=== PATIENT | female | born 1990 | race Caucasian/White ===

== ENCOUNTER 2017-02-18 10:49 | Emergency (ER) | payer SELFPAY ==
--- NOTE | 2017-02-18 12:07 | Emergency Department Report ---
Chief Complaint: Vaginal Bleeding Stated Complaint: 7 WKS PREG/BLEEDING/CRAMPING Time Seen by Provider: 02/18/17 12:04 - HPI History of Present Illness: PT states she is 6-7 weeks and she has had vaginal bleeding since . pt reports intermittent lower abd pains. - ROS Review of Systems: + vaginal bleeding + lower abd pain - Exam Physical Exam: pt looks well, non toxic mild tenderness to LLQ MSE screening note: Focused history and physical exam performed. Due to findings the following was ordered: labs, us ED Disposition for MSE Condition: Stable
[2017-02-18 12:51] LABS: Basophils % (Auto) 0.3 % (0.0-1.8); Eosinophils % (Auto) 1.7 % (0.0-4.3); Hemoglobin 13.4 gm/dl (10.1-14.3); Mean Corpuscular HGB Conc 34 % (30-34); Mean Corpuscular Hemoglobin 30 pg (28-32); Mean Corpuscular Volume 89 fl (79-97); Platelet Count 254 K/mm3 (140-440); Red Blood Count 4.47 M/mm3 (3.65-5.03); White Blood Count 7.4 K/mm3 (4.5-11.0)
[2017-02-18 13:03] LABS: Alanine Aminotransferase 9 units/L (7-56); Albumin/Globulin Ratio 1.3 %; Alkaline Phosphatase 47 units/L (35-129); Anion Gap 18 mmol/L; Blood Urea Nitrogen 9 mg/dL (7-17); Calcium 9.1 mg/dL (8.4-10.2); Carbon Dioxide 24 mmol/L (22-30); Chloride 98.1 mmol/L (98-107); Glucose 85 mg/dL (65-100); Potassium 3.8 mmol/L (3.6-5.0); Sodium 136 mmol/L (137-145); Total Protein 7.2 g/dL (6.3-8.2)
[2017-02-18 14:02] LABS: Bilirubin,Urine NEG (Negative); Blood,Urine LG (Negative); Ketones,Urine NEG (Negative); Leukocyte Esterase,Urine NEG (Negative); Mucus,Urine FEW /HPF; Nitrite,Urine NEG (Negative); Urobilinogen,Urine < 2.0 mg/dL (<2.0)
--- NOTE | 2017-02-18 14:59 | Ultrasound Report ---
Pelvic and transvaginal sonography: History: 6 weeks with bleeding. Findings: Uterus measures 8.3 x 6.3 x 6.4 cm. Single intrauterine gestation is noted. CRL of the fetus is 9.3 mm corresponding to 7 weeks of gestation. heart rate 135 per minute. Moderate subchorionic bleed measuring 0.8 x 0.7 cm in diameter. Right ovary 2.4 x 1.9 x 2.9 cm. Complex cyst in the right ovary measures 1.7 cm. Left ovary 1.9 x 1.2 x 1.9 cm. No mass. Impression: Single viable intrauterine gestation. Small subchorionic bleed.
[2017-02-18 15:21] VITALS: BP 132/86
--- NOTE | 2017-02-18 15:47 | Emergency Department Report ---
HPI - General Chief Complaint: Vaginal Bleeding Time Seen by Provider: 02/18/17 12:04 - HPI HPI: This is a 26-year-old female states she is approximately 7 weeks presents to ED complaining of vaginal bleeding for the past week. Patient describes as dark red with light consistency. Patient states mild low pelvic cramping related. States she has an OB appointment next week and has not been to the OB this . She denies fevers/chills/vomiting/ ED Past Medical Hx - Past Medical History Previous Medical History?: Yes Hx Headaches / Migraines: Yes Additional medical history: Vaginal delivery X 3 - Surgical History Past Surgical History?: No - Social History Smoking Status: Never Smoker Substance Use Type: None - Medications Home Medications: Home Medications Medication Instructions Recorded Confirmed Last Taken Type Nitrofurantoin Gibson/M-Cryst 100 mg PO Q12HR #14 capsule 11/30/13 Unknown Rx [Macrobid] oxyCODONE /ACETAMINOPHEN [Percocet 1 tab PO Q6HR PRN #10 tablet 11/30/13 Unknown Rx 5/325 mg] Amoxicillin [Trimox CAP] 500 mg PO Q8H #30 capsule 09/05/15 Unknown Rx Acetaminophen [Acetaminophen 8 650 mg PO Q8H #30 tablet.er 02/18/17 Unknown Rx Hour] Doxylamine/Pyridoxine HCl 2 each PO QHS #30 tablet. 02/18/17 Unknown Rx [Bruce Kruger 10-10 mg Tablet] ED Review of Systems ROS: Stated complaint: 7 WKS PREG/BLEEDING/CRAMPING Other details as noted in HPI Constitutional: denies: chills, fever Eyes: denies: eye pain, eye discharge, vision change ENT: denies: ear pain, throat pain Respiratory: denies: cough, shortness of breath, wheezing Cardiovascular: denies: chest pain, palpitations Endocrine: no symptoms reported Gastrointestinal: denies: abdominal pain, nausea, diarrhea Genitourinary: frequency. denies: urgency, dysuria, hematuria, discharge Musculoskeletal: denies: back pain, joint swelling, arthralgia Skin: denies: rash, lesions Neurological: denies: headache, weakness, paresthesias Psychiatric: denies: anxiety, depression Hematological/Lymphatic: denies: easy bleeding, easy bruising Physical Exam - Physical Exam Vital Signs: Vital Signs 02/18/17 02/18/17 12:04 15:20 Temperature 98 F Pulse Rate 71 84 Respiratory 16 20 Rate Blood Pressure 114/71 Blood Pressure 132/86 [Left] O2 Sat by Pulse 95 99 Oximetry Physical Exam: EGENERAL: Alert and oriented x3, no apparent distress, Normal Gait, atraumatic. HEAD: Head is normocephalic and a-traumatic. EYES: Extra ocular muscles are intact. Pupils are equal, round, and reactive to light and accommodation. LUNGS: Symetrical with respiration, No wheezing, no rales or crackles, CTAB. HEART: S1, S2 present, regular rate and rhythm without murmur, no rubs, no gallops. Non tender to palpation ABDOMEN: No organomegaly was noted,Positive bowel sounds, soft, and non- distended. . Nontender to palpation on all Quadrants, NO CVA tenderness. GENITOURINARY: External genitalia without erythema, exudate or discharge. Vaginal vault is with mild dark bloody discharge. Cervix is of normal color without lesion. Cervical os is closed. No bleeding no active bleeding from os Uterus is noted to be of normal size and nontender. No cervical motion tenderness. No masses are palpated. The adnexa are without masses or tenderness. EXTREMITIES/MUSCULOSKELETAL: No cyanosis, clubbing, rash, lesions or edema. Full ROM bilaterally. UE/LE Pulses 2+ bilaterally. SKIN: Warm and dry, No lesions, No ulceration or induration present. ED Course Vital Signs 02/18/17 02/18/17 12:04 15:20 Temperature 98 F Pulse Rate 71 84 Respiratory 16 20 Rate Blood Pressure 114/71 Blood Pressure 132/86 [Left] O2 Sat by Pulse 95 99 Oximetry ED Medical Decision Making - Lab Data Result diagrams: 02/18/17 12:24 02/18/17 12:24 Laboratory Results - last 24 hr 02/18/17 02/18/17 02/18/17 12:24 12:24 12:24 WBC 7.4 RBC 4.47 Hgb 13.4 Hct 40.0 MCV 89 MCH 30 MCHC 34 RDW 13.0 L Plt Count 254 Lymph % (Auto) 33.4 Gibson % (Auto) 6.1 Eos % (Auto) 1.7 Baso % (Auto) 0.3 Lymph # 2.5 Gibson # 0.5 Eos # 0.1 Baso # 0.0 Seg Neutrophils % 58.5 Seg Neutrophils # 4.3 Sodium 136 L Potassium 3.8 Chloride 98.1 Carbon Dioxide 24 Anion Gap 18 BUN 9 Creatinine 0.4 L Estimated GFR > 60 BUN/Creatinine Ratio 22.50 Glucose 85 Calcium 9.1 Total Bilirubin 0.20 AST 14 ALT 9 Alkaline Phosphatase 47 Total Protein 7.2 Albumin 4.0 Albumin/Globulin Ratio 1.3 HCG, Quant 66357 H Urine Color Urine Turbidity Urine pH Ur Specific [place] Urine Protein Urine Glucose (UA) Urine Ketones Urine Blood Urine Nitrite Urine Bilirubin Urine Urobilinogen Ur Leukocyte Esterase Urine WBC (Auto) Urine RBC (Auto) U Epithel Cells (Auto) Amorphous Crystals Urine Mucus Blood Type 02/18/17 02/18/17 12:24 13:37 WBC RBC Hgb Hct MCV MCH MCHC RDW Plt Count Lymph % (Auto) Gibson % (Auto) Eos % (Auto) Baso % (Auto) Lymph # Gibson # Eos # Baso # Seg Neutrophils % Seg Neutrophils # Sodium Potassium Chloride Carbon Dioxide Anion Gap BUN Creatinine Estimated GFR BUN/Creatinine Ratio Glucose Calcium Total Bilirubin AST ALT Alkaline Phosphatase Total Protein Albumin Albumin/Globulin Ratio HCG, Quant Urine Color Yellow Urine Turbidity Turbid Urine pH 7.0 Ur Specific [place] 1.019 Urine Protein 30 mg/dl Urine Glucose (UA) Neg Urine Ketones Neg Urine Blood Lg Urine Nitrite Neg Urine Bilirubin Neg Urine Urobilinogen < 2.0 Ur Leukocyte Esterase Neg Urine WBC (Auto) 2.0 Urine RBC (Auto) 4.0 U Epithel Cells (Auto) 10.0 Amorphous Crystals 1+ Urine Mucus Few Blood Type A POSITIVE - Radiology Data Radiology results: report reviewed, image reviewed Pelvic and transvaginal sonography: History: 6 weeks with bleeding. Findings: Uterus measures 8.3 x 6.3 x 6.4 cm. Single intrauterine gestation is noted. CRL of the fetus is 9.3 mm corresponding to 7 weeks of gestation. heart rate 135 per minute. Moderate subchorionic bleed measuring 0.8 x 0.7 cm in diameter. Right ovary 2.4 x 1.9 x 2.9 cm. Complex cyst in the right ovary measures 1.7 cm. Left ovary 1.9 x 1.2 x 1.9 cm. No mass. Impression: Single viable intrauterine gestation. Small subchorionic bleed. Transcribed By: PTP Dictated By: RUFUS CARNEY MD Electronically Authenticated By: RUFUS CARNEY MD Signed Date/Time: 02/18/17 9436 - Medical Decision Making 26-year-old female presents to ED for threatened ED course: CBC, BMP, test, quantitative, urinalysis, OB ultrasound ordered. CBC within normal limits BMP within normal limits. preg test is positive, quant greater than 76,000 Discussed all this with the patient. Discussed the patient to follow up with OB doctor patient states she has been appointment next week. Instructed the patient to Increase her water intake to 8-10 glasses per day. Discussed with the patient to have No sexual intercourse for the about a month or until follow-up which her OB. If your symptoms or bleeding get worse return to ED. Vital signs normal patient is in no acute distress Critical care attestation.: If time is entered above; I have spent that time in minutes in the direct care of this critically ill patient, excluding procedure time. ED Disposition Clinical Impression: Threatened in first trimester Disposition: DC-01 TO HOME OR SELFCARE Is pt being admited?: No Does the pt Need Aspirin: No Condition: Stable Instructions: Threatened Miscarriage (ED), Abdominal Pain in (ED) Additional Instructions: Increase her water intake to 8-10 glasses per day. No sexual intercourse for the about a month or until follow-up which her OB. keep OB appointment for next week If your symptoms or bleeding get worse return to ED. Prescriptions: Doxylamine/Pyridoxine HCl [Diclegis 10-10 mg Tablet] 2 each PO QHS #30 tablet. Acetaminophen [Acetaminophen 8 Hour] 650 mg PO Q8H #30 tablet.er Referrals: PRIMARY CARE, [Primary Care Provider] - 3-5 Days MORIS BLAS MD [Referring] - 3-5 Days LARY BLAS MD [Staff Physician] - 3-5 Days LAURO BLAS MD [Staff Physician] - 3-5 Days Forms: Accompanied Note, Work/School Release Form(ED) Time of Disposition: 17:09 Print Language: KITTITIAN
== END 2017-02-18 17:21 | disposition home or self-care (01) ==
LOC: ED 10:49
DX: O20.0 Threatened abortion (principal); Z3A.01 Less than 8 weeks gestation of pregnancy; G43.909 Migraine, unspecified, not intractable, without status migrainosus
CPT/HCPCS: 36415; 76801; 76817; 80053; 81001; 84702; 85025; 86900; 86901